=== PATIENT | male | born 1955 | race Caucasian/White ===

== ENCOUNTER 2016-09-28 05:26 | Emergency (ER) ==
--- NOTE | 2016-09-28 05:45 | EKG Report ---
Test Performed on : 09/28/2016 05:31:30 AM Test Reason : PAIN Blood Pressure : / mmHG Vent. Rate : 099 BPM Atrial Rate : 099 BPM P-R Int : 162 ms QRS Dur : 088 ms QT Int : 344 ms P-R-T Axes : 038 026 038 degrees QTc Int : 441 ms Normal sinus rhythm. Normal ECG When compared with ECG of 09-SEP-2013 14:13, Vent. rate has increased BY 33 BPM QT has lengthened Unconfirmed Result
[2016-09-28] MEDS ORDERED: ASPIRIN PO STA (05:52)
[2016-09-28] MEDS ORDERED: ZOFRAN IV ONE (05:53)
[2016-09-28] MEDS ORDERED: DILAUDID IV ONE (05:53)
[2016-09-28] MEDS ORDERED: DUONEB (A & A) INH ONE (05:53)
--- NOTE | 2016-09-28 05:58 | PROVIDER DOCUMENTATION ---
HPI-Chest Pain - General Source: patient, EMS <Roldan Raman - Last Filed: 09/28/16 05:54> <Edwardo Lee - Last Filed: 09/28/16 08:35> - General Chief Complaint: Flank Pain Stated Complaint: flank pain Time Seen by Provider: 09/28/16 05:52 Allergies/Adverse Reactions: Patient Allergies Allergy/AdvReac Type Severity Reaction Status Date / Time No Known Allergies Allergy Verified 09/28/16 05:46 Home Medications: Home Medication List Medication Instructions Recorded Confirmed Last Taken Type Losartan/Hydrochlorothiazide 1 each PO DAILY 10/25/12 09/28/16 09/27/16 History [Losartan-Hctz 100-25 mg Tab] Diphenhydramine HCl [Nighttime 1 cap PO QHS PRN 09/28/16 09/28/16 Unknown History Sleep Aid] Famotidine 20 mg PO DAILY 09/28/16 09/28/16 09/27/16 History Gabapentin 300 mg PO BID 09/28/16 09/28/16 09/27/16 History Hydrocodone Bit/Acetaminophen 1 tab PO BID PRN 09/28/16 09/28/16 Unknown History [Hydrocodon-Acetaminoph 7.5-325] Indomethacin [Indocin] 25 mg PO TID #60 capsule 09/28/16 Unknown Rx Tizanidine [Zanaflex] 4 mg PO PRN PRN 09/28/16 09/28/16 Unknown History - History of Present Illness-CP Nature of Presenting Problem: pt reports onset of sharp pluertic CP since last night felt near right flank and top of left shoulder that is moderately severe and constant. HE has felt much more SOB than usual. No nausea or diaphoresis. No fever or chills. No leg swelling. He has not taken anything for the pain (Roldan Raman) Review of Systems - Adult - REVIEW OF SYSTEMS - ADULT Constitutional: denies: chills, fever Eyes: denies: discharge Ears, Nose, Mouth & Throat: denies: ear pain, sinus problem, throat pain Cardiovascular: reports: see HPI. denies: edema, orthopnea, palpitations, syncope Respiratory: reports: chronic cough, pleurisy, shortness of breath. denies: hemoptysis Gastrointestinal: denies: abdominal pain, nausea, vomiting Genitourinary: reports: flank pain (right). denies: dysuria, frequency Musculoskeletal: reports: back pain (chronic lower back) Integumentary: denies: rash Neurological: denies: headache/migraines, numbness Psychiatric: reports: no symptoms reported Endocrine: reports: no symptoms reported Hematologic/Lymphatic: reports: no symptoms reported Allergic/Immunologic: reports: no symptoms reported All Other Systems: Reviewed and Negative <Roldan Raman - Last Filed: 09/28/16 05:54> Past History - Adult - PAST MEDICAL HISTORY-ADULT Review of Records: reports: Old Records Reviewed, Nursing Assessment Review, Medications Reviewed, Social history reviewed & non-contributory. - PRIOR SURGERIES/PROCEDURES Surgical/Procedure History: reports: other (right nephectomy) - FAMILY HISTORY Family History: reviewed, not pertinent - SOCIAL HISTORY Smoking: greater than 1 pack/day Substance Use: none/never Living Situation: alone <Roldan Raman - Last Filed: 09/28/16 05:54> Physical Exam-General - PHYSICAL EXAM-ADULT Initial Vital Signs Reviewed: Yes - CONSTITUTIONAL General Appearance: appears well, alert, mild distress (from pain) - EYES Eyes: pink conjunctivae. negative: scleral icterus - HEAD, EARS, NOSE, MOUTH & THROAT HENMT: normocephalic/atraumatic - NECK Neck: non-tender, full range of motion, supple, normal inspection - RESPIRATORY Respiratory: chest non-tender, normal breath sounds, no respiratory distress, no accessory muscle use, decreased breath sounds. negative: lungs clear, no pleuratic chest pain - CARDIOVASCULAR Cardiovascular: regular rate, rhythm, no edema, no murmur - CHEST (BREASTS) Chest/Breast: no tenderness - GASTROINTESTINAL (ABDOMEN) Abdominal Exam: normal bowel sounds, non tender, soft, no organomegaly, no pulsatile mass - MUSCULOSKELETAL Back Exam: normal inspection, no CVA tenderness, no vertebral tenderness Extremity: non-tender, normal gait, normal inspection, no pedal edema, no calf tenderness - SKIN Integumentary: normal color, normal turgor, warm/dry - NEUROLOGIC Neurologic: grossly normal, no motor/sensory deficits - PSYCHIATRIC Psych/Mental Status: normal mood/affect, normal thought content, normal thought process, oriented x 3 <Roldan Raman - Last Filed: 09/28/16 05:54> Progress - EKG 1 Time of EKG reading by physician:: 05:57 EKG Interpretation (*Must complete 3 of following elements*): Normal Rate: 99 Rhythm: sinus [place]: normal QRS: normal [place] Interval: normal ST Wave: normal Prior EKG Comparison: no prior EKG <Roldan Raman - Last Filed: 09/28/16 05:54> - REASSESSMENT Reassessment #1 Time Reassessed: 07:00 (com;lete resolution of left shoulder pain after the trigger point injection, pleuritic pain minimal) Status: improving Reassessment #2 Time Reassessed: 08:28 Status: improving (doing fine/ discussed atelectasis and incentive spirometry for right basilar discomfort) <Edwardo Lee - Last Filed: 09/28/16 08:35> - PLAN OF CARE/RESULTS Progress/Plan/Lab Results: Laboratory Tests 09/28/16 09/28/16 09/28/16 05:35 05:35 05:35 WBC 10.41 RBC 4.91 Hgb 15.3 Hct 44.4 MCV 90.4 MCH 31.2 H MCHC 34.5 RDW Std Deviation 12.2 Plt Count 272 MPV 10.5 H Immature Gran % (Auto) 0.2 Neut % (Auto) 62.1 Lymph % (Auto) 28.0 [place] % (Auto) 7.7 Eos % (Auto) 1.8 Baso % (Auto) 0.2 Immature Gran # (Auto) 0.02 Neut # (Auto) 6.47 Lymph # (Auto) 2.91 [place] # (Auto) 0.80 H Eos # (Auto) 0.19 Baso # (Auto) 0.02 PT INR PTT (Actin FS) D-Dimer 0.44 Sodium 138 Potassium 3.6 Chloride 102 Carbon Dioxide 24 L Anion Gap 12 BUN 20 Creatinine 0.9 Estimated GFR/1.73 m2 > 60 BUN/Creatinine Ratio 22 Glucose 101 Calculated Osmolality 278 Calcium 9.4 Magnesium 1.9 Total Bilirubin 0.58 AST 20 ALT 22 Alkaline Phosphatase 85 Creatine Kinase 95 Troponin T Emt-R-Cnejqwaajsj Pept Total Protein 7.1 Albumin 4.1 Globulin 3.0 Albumin/Globulin Ratio 1.4 Urine Source Urine Color Urine Turbidity Urine pH Ur Specific [place] Urine Protein Ur Glucose (Stick) Ur Ketones (Stick) Urine Blood Urine Nitrite Urine Bilirubin Urobilinogen Dipstick Urine Leukocytes Urine WBC (Auto) Urine RBC (Auto) U Epithel Cells (Auto) Urine Bacteria (Auto) 09/28/16 09/28/16 09/28/16 05:35 05:35 05:35 WBC RBC Hgb Hct MCV MCH MCHC RDW Std Deviation Plt Count MPV Immature Gran % (Auto) Neut % (Auto) Lymph % (Auto) [place] % (Auto) Eos % (Auto) Baso % (Auto) Immature Gran # (Auto) Neut # (Auto) Lymph # (Auto) [place] # (Auto) Eos # (Auto) Baso # (Auto) PT 10.8 INR 1.03 PTT (Actin FS) 27.5 D-Dimer Sodium Potassium Chloride Carbon Dioxide Anion Gap BUN Creatinine Estimated GFR/1.73 m2 BUN/Creatinine Ratio Glucose Calculated Osmolality Calcium Magnesium Total Bilirubin AST ALT Alkaline Phosphatase Creatine Kinase Troponin T < 0.010 God-J-Tvgytdgluek Pept 56 Total Protein Albumin Globulin Albumin/Globulin Ratio Urine Source Urine Color Urine Turbidity Urine pH Ur Specific [place] Urine Protein Ur Glucose (Stick) Ur Ketones (Stick) Urine Blood Urine Nitrite Urine Bilirubin Urobilinogen Dipstick Urine Leukocytes Urine WBC (Auto) Urine RBC (Auto) U Epithel Cells (Auto) Urine Bacteria (Auto) 09/28/16 08:08 WBC RBC Hgb Hct MCV MCH MCHC RDW Std Deviation Plt Count MPV Immature Gran % (Auto) Neut % (Auto) Lymph % (Auto) [place] % (Auto) Eos % (Auto) Baso % (Auto) Immature Gran # (Auto) Neut # (Auto) Lymph # (Auto) [place] # (Auto) Eos # (Auto) Baso # (Auto) PT INR PTT (Actin FS) D-Dimer Sodium Potassium Chloride Carbon Dioxide Anion Gap BUN Creatinine Estimated GFR/1.73 m2 BUN/Creatinine Ratio Glucose Calculated Osmolality Calcium Magnesium Total Bilirubin AST ALT Alkaline Phosphatase Creatine Kinase Troponin T Ect-D-Dlnreaktsjz Pept Total Protein Albumin Globulin Albumin/Globulin Ratio Urine Source CLEAN CATCH Urine Color YELLOW Urine Turbidity CLEAR Urine pH 6.0 Ur Specific [place] 1.024 Urine Protein NEGATIVE Ur Glucose (Stick) NEGATIVE Ur Ketones (Stick) NEGATIVE Urine Blood NEGATIVE Urine Nitrite NEGATIVE Urine Bilirubin NEGATIVE Urobilinogen Dipstick 2 A Urine Leukocytes NEGATIVE Urine WBC (Auto) <10 Urine RBC (Auto) <10 U Epithel Cells (Auto) <10 Urine Bacteria (Auto) NEGATIVE Orders Category Date Time Status Cardiac Monitoring DIRECTED Care 09/28/16 05:52 Active Nursing- Assist w/ IS as order ORDERED Care 09/28/16 08:22 Active Oxygen Therapy- ED Nursing DIRECTED Care 09/28/16 05:52 Active Saline Loc NOW Care 09/28/16 05:52 Active CHEST-2 VIEWS [RAD] Stat Exams 09/28/16 05:52 Draft CBC WITH ELECTRONIC DIFF [HEME] Stat Lab 09/28/16 05:35 Completed CK PROFILE [SP CHEM] Stat Lab 09/28/16 05:35 Completed COMPREHENSIVE METABOLIC PANEL [CHEM] Stat Lab 09/28/16 05:35 Completed D-DIMER [CHEM] Stat Lab 09/28/16 05:35 Completed MAGNESIUM [CHEM] Stat Lab 09/28/16 05:35 Completed PRO B-NATRIURETIC PEPTIDE Stat Lab 09/28/16 05:35 Completed PROTIME WITH INR [COAG] Stat Lab 09/28/16 05:35 Completed PTT [COAG] Stat Lab 09/28/16 05:35 Completed TROPONIN T Stat Lab 09/28/16 05:35 Completed UA NIMS W/REFLEX CULT [URINALYSIS] Stat Lab 09/28/16 08:08 Results UDS [URINE DRUG SCREEN] Stat Lab 09/28/16 08:08 Received Albuterol 2.5MG/Ipratrop 0.5MG [Duoneb (A & A)] Med 09/28/16 05:53 Discontinued 3 ml INH NOW ONE Aspirin Med 09/28/16 05:52 Discontinued 325 mg PO STAT STA Bupivacaine 0.5% [Marcaine 0.5%] Med 09/28/16 06:44 Discontinued 5 ml INJ NOW ONE Bupivacaine Pf 0.5% [Marcaine 0.5% Pf] Med 09/28/16 06:47 Discontinued 10 ml .ROUTE .STK-MED ONE Hydromorphone [Dilaudid] Med 09/28/16 05:53 Discontinued 1 mg IV NOW ONE Indomethacin [Indocin] Med 09/28/16 07:03 Discontinued 25 mg PO NOW ONE Lidocaine 1%/Epi 1:100,000 [Xylocaine 1%/Epi 1:100,000] Med 09/28/16 06:44 Discontinued 5 ml INJ NOW ONE Ondansetron [Zofran] Med 09/28/16 05:53 Discontinued 4 mg IV NOW ONE Aerosol Treatments Routine Oth 09/28/16 05:54 Completed Aerosol Treatments Stat Oth 09/28/16 05:54 Completed Incentive Spirometer Stat Oth 09/28/16 08:22 Active EKG [EKG] Stat Ther 09/28/16 05:28 Draft Vital Signs Temp Pulse Resp BP Pulse Ox 09/28/16 08:06 87 17 111/74 96 09/28/16 06:20 85 16 99 09/28/16 05:40 98.1 F 92 H 20 141/100 96 No Known Allergies Allergy (Verified 09/28/16 05:46) Losartan/Hydrochlorothiazide [Losartan-Hctz 100-25 mg Tab] 1 each PO DAILY 10/25 Diphenhydramine HCl [Nighttime Sleep Aid] 1 cap PO QHS PRN 09/28/16 Famotidine 20 mg PO DAILY 09/28/16 Gabapentin 300 mg PO BID 09/28/16 Hydrocodone Bit/Acetaminophen [Hydrocodon-Acetaminoph 7.5-325] 1 tab PO BID PRN 09/28/16 Tizanidine [Zanaflex] 4 mg PO PRN PRN 09/28/16 Laboratory 09/28/16 09/28/16 09/28/16 08:08 05:35 05:35 WBC RBC Hgb Hct MCV MCH MCHC RDW Std Deviation Plt Count MPV Immature Gran % (Auto) Neut % (Auto) Lymph % (Auto) [place] % (Auto) Eos % (Auto) Baso % (Auto) Immature Gran # (Auto) Neut # (Auto) Lymph # (Auto) [place] # (Auto) Eos # (Auto) Baso # (Auto) PT 10.8 INR 1.03 PTT (Actin FS) 27.5 D-Dimer Sodium Potassium Chloride Carbon Dioxide Anion Gap BUN Creatinine Estimated GFR/1.73 m2 BUN/Creatinine Ratio Glucose Calculated Osmolality Calcium Magnesium Total Bilirubin AST ALT Alkaline Phosphatase Creatine Kinase Troponin T < 0.010 Pui-G-Mwqezbddpkn Pept Total Protein Albumin Globulin Albumin/Globulin Ratio Urine Source CLEAN CATCH Urine Color YELLOW Urine Turbidity CLEAR Urine pH 6.0 Ur Specific [place] 1.024 Urine Protein NEGATIVE Ur Glucose (Stick) NEGATIVE Ur Ketones (Stick) NEGATIVE Urine Blood NEGATIVE Urine Nitrite NEGATIVE Urine Bilirubin NEGATIVE Urobilinogen Dipstick 2 A Urine Leukocytes NEGATIVE Urine WBC (Auto) <10 Urine RBC (Auto) <10 U Epithel Cells (Auto) <10 Urine Bacteria (Auto) NEGATIVE 09/28/16 09/28/16 09/28/16 05:35 05:35 05:35 WBC RBC Hgb Hct MCV MCH MCHC RDW Std Deviation Plt Count MPV Immature Gran % (Auto) Neut % (Auto) Lymph % (Auto) [place] % (Auto) Eos % (Auto) Baso % (Auto) Immature Gran # (Auto) Neut # (Auto) Lymph # (Auto) [place] # (Auto) Eos # (Auto) Baso # (Auto) PT INR PTT (Actin FS) D-Dimer 0.44 Sodium 138 Potassium 3.6 Chloride 102 Carbon Dioxide 24 L Anion Gap 12 BUN 20 Creatinine 0.9 Estimated GFR/1.73 m2 > 60 BUN/Creatinine Ratio 22 Glucose 101 Calculated Osmolality 278 Calcium 9.4 Magnesium 1.9 Total Bilirubin 0.58 AST 20 ALT 22 Alkaline Phosphatase 85 Creatine Kinase 95 Troponin T Yoz-P-Fn[place]otsreb Pept 56 Total Protein 7.1 Albumin 4.1 Globulin 3.0 Albumin/Globulin Ratio 1.4 Urine Source Urine Color Urine Turbidity Urine pH Ur Specific [place] Urine Protein Ur Glucose (Stick) Ur Ketones (Stick) Urine Blood Urine Nitrite Urine Bilirubin Urobilinogen Dipstick Urine Leukocytes Urine WBC (Auto) Urine RBC (Auto) U Epithel Cells (Auto) Urine Bacteria (Auto) 09/28/16 05:35 WBC 10.41 RBC 4.91 Hgb 15.3 Hct 44.4 MCV 90.4 MCH 31.2 H MCHC 34.5 RDW Std Deviation 12.2 Plt Count 272 MPV 10.5 H Immature Gran % (Auto) 0.2 Neut % (Auto) 62.1 Lymph % (Auto) 28.0 [place] % (Auto) 7.7 Eos % (Auto) 1.8 Baso % (Auto) 0.2 Immature Gran # (Auto) 0.02 Neut # (Auto) 6.47 Lymph # (Auto) 2.91 [place] # (Auto) 0.80 H Eos # (Auto) 0.19 Baso # (Auto) 0.02 PT INR PTT (Actin FS) D-Dimer Sodium Potassium Chloride Carbon Dioxide Anion Gap BUN Creatinine Estimated GFR/1.73 m2 BUN/Creatinine Ratio Glucose Calculated Osmolality Calcium Magnesium Total Bilirubin AST ALT Alkaline Phosphatase Creatine Kinase Troponin T Gll-X-Smqsflnqvyr Pept Total Protein Albumin Globulin Albumin/Globulin Ratio Urine Source Urine Color Urine Turbidity Urine pH Ur Specific [place] Urine Protein Ur Glucose (Stick) Ur Ketones (Stick) Urine Blood Urine Nitrite Urine Bilirubin Urobilinogen Dipstick Urine Leukocytes Urine WBC (Auto) Urine RBC (Auto) U Epithel Cells (Auto) Urine Bacteria (Auto) (Edwardo Lee) Procedures - ADDITIONAL PROCEDURES Time-Out Verification Completed?: Yes Site Prep: Betadine Anesthetic: 0.5%, 1%, Lidocaine w/ Epinephrine, Bupivicaine/Marcaine Volume of Anesthetic (ml's): 10 (ml 50/50 lidocaine/marcaine) Procedure Comment: left trapezius injected with complete relief of left shoulder pain <Edwardo Lee - Last Filed: 09/28/16 08:35> Departure <Roldan Raman - Last Filed: 09/28/16 05:54> - Departure Time of Disposition Order: 08:30 Certified Medical Emergency: Emergent <Edwardo Lee - Last Filed: 09/28/16 08:35> - Departure DIAGNOSIS: Atelectasis, right, Myalgia Disposition: HOME 01 Condition: Stable Additional Instructions: take medication for pain and use the incentive spirometryto expand lung ED Follow Up Instructions: You have been treated by a care provider in the Emergency Department. These instructions are being provided to you so you can have an understanding of how to care for yourself upon discharge. Upon discharge from the Emergency Department, you are responsible for making arrangements for follow-up care by a physician of your choice. Take all prescribed medications as directed. Return to the Emergency Department immediately for any new or worsening symptoms. You may call the Physician Referral phone number at [phone] to obtain a list of Physicians who are taking new patients. Prescriptions: Indomethacin [Indocin] 25 mg PO TID #60 capsule Physician Attestation
[2016-09-28 06:05] LABS: MANUAL DIFF NEEDED? NO
[2016-09-28 06:07] LABS: BASO% 0.2 % (0.0-0.8); EOS# 0.19 X1000 (0.0-0.7); EOS% 1.8 % (0.0-10.0); HEMATOCRIT 44.4 % (42.0-52.0); HEMOGLOBIN 15.3 g/dL (14.0-18.0); IMM GRAN# 0.02 X1000 (0.0-0.04); IMM GRAN% 0.2 % (0.0-0.5); LYMPH# 2.91 X1000 (1.2-3.4); MCH 31.2 PG (27-31); MCHC 34.5 g/dL (33-37); MCV 90.4 FL (81-99); MONO% 7.7 % (1.7-9.3); MPV 10.5 FL (7.4-10.4); NEUT% 62.1 % (42.2-75.2); PLT 272 X1000 (130-400); RBC 4.91 XMIL (4.7-6.1)
[2016-09-28 06:23] LABS: AGAP 12; ALBUMIN 4.1 g/dL (3.5-5.0); ALKALINE PHOSPHATASE 85 U/L (32-122); BUN 20 mg/dL (8-22); CALCIUM 9.4 mg/dL (8.8-10.2); CHLORIDE 102 mmol/L (98-107); CK PROFILE 95 U/L (24-204); COSMO 278; GOT 20 U/L (10-34); GPT 22 U/L (10-44); MAGNESIUM 1.9 mg/dL (1.5-2.7); POTASSIUM 3.6 mmol/L (3.5-5.1); SODIUM 138 mmol/L (136-145); TCO2 24 mmol/L (25-35); TOTAL BILIRUBIN 0.58 mg/dL (0.20-1.00); TOTAL PROTEIN 7.1 g/dL (6.3-8.3)
[2016-09-28 06:26] LABS: INR 1.03; PROTIME 10.8 Seconds (9.2-11.7); PTT 27.5 Seconds (22.0-36.0)
[2016-09-28] MEDS ORDERED: XYLOCAINE 1%/EPI 1:100,000 INJ ONE (06:44)
[2016-09-28] MEDS ORDERED: MARCAINE 0.5% INJ ONE (06:44)
[2016-09-28] MEDS ORDERED: MARCAINE 0.5% PF ONE (06:47)
[2016-09-28] MEDS ORDERED: INDOCIN PO ONE (07:03)
--- NOTE | 2016-09-28 07:34 | Diag Imaging Result Document ---
PROCEDURE NAME: CHEST-2 VIEWS - 09/28/2016 PA AND LATERAL RADIOGRAPH OF THE CHEST: COMPARISON: 09/09/2013. FINDINGS: There is focal opacity at the right lung base suggesting mild subsegmental atelectasis or, less likely, infiltrate. The lungs are clear otherwise. Cardiac silhouette and central vasculature are grossly unremarkable. IMPRESSION: Very mild atelectasis and/or infiltrate at the right lung base.
[2016-09-28 08:07] VITALS: BP 111/74
[2016-09-28 08:17] LABS: URINE CULTURE NEEDED? NO; URINE MICRO REVIEW NEEDED? NO; URINE SOURCE CLEAN CATCH
[2016-09-28 08:27] LABS: BILIRUBIN URINE NEGATIVE (NEGATIVE); BLOOD URINE NEGATIVE (NEGATIVE); COLOR YELLOW; GLUCOSE URINE NEGATIVE (NEGATIVE); LEUKOCYTES URINE NEGATIVE (NEGATIVE); NITRITE URINE NEGATIVE (NEGATIVE); PROTEIN URINE NEGATIVE (NEGATIVE); SP GRAVITY URINE 1.024; TURBIDITY URINE CLEAR (CLEAR); UR EPITHELIAL CELLS <10 /HPF (<10); URINE BACTERIA NEGATIVE /HPF; URINE RBC <10 /HPF (<10); URINE WBC <10 /HPF (<10); UROBILINOGEN URINE 2 mg/dL (NORMAL)
[2016-09-28 09:32] LABS: UR AMPHETAMINES QUAL NONE DETECTED (NONE DETECT); UR BARBITUATES QUAL NONE DETECTED (NONE DETECT); UR BENZODIAZEPIN QUAL NONE DETECTED (NONE DETECT); UR CANNABINOIDS QUAL NONE DETECTED (NONE DETECT); UR COCAINE QUAL NONE DETECTED (NONE DETECT); UR METHADONE QUAL NONE DETECTED (NONE DETECT); UR OPIATES QUAL NONE DETECTED (NONE DETECT); UR OXYCODONE QUAL NONE DETECTED (NONE DETECT); UR PCP QUAL NONE DETECTED (NONE DETECT)
== END 2016-09-28 08:49 | disposition home or self-care (01) ==
LOC: EDBD → ED 05:26
DX: J98.11 Atelectasis (principal); M79.1 Myalgia; M25.512 Pain in left shoulder; R10.9 Unspecified abdominal pain; R07.81 Pleurodynia; R06.02 Shortness of breath; R05 Cough; R09.1 Pleurisy; M54.5 Low back pain; G89.29 Other chronic pain; F17.210 Nicotine dependence, cigarettes, uncomplicated; Z79.899 Other long term (current) drug therapy; Z90.5 Acquired absence of kidney
CPT/HCPCS: 71020; 80053; 81001; 82550; 83735; 83880; 84484; 85025; 85379; 85610; 85730; 93005; 94640; G0480; J1170; J2405; 80324; 80345; 80346; 80349; 80353; 80358; 80361; 80365; 83992; S0020